=== PATIENT | male | born 1950 | race Hispanic/Latino ===

== ENCOUNTER → 2018-11-13 | Outpatient (CLI) | payer OTHER, MEDICARE ==
[~2018-11-13] VITALS: Ht 167.6 cm; Wt 80.7 kg
[~2018-11-13] MED LIST: REGADENOSON 0.4 MG/5 ML PF SYG IVP SCH
== END | disposition home or self-care (01) ==
LOC: SHCH 07:45
PROVIDERS: ATTEND Internal Medicine Cardiovascular Disease
DX: I25.119 Atherosclerotic heart disease of native coronary artery with unspecified angina pectoris (principal)
CPT/HCPCS: 78452; 93017; 96374; A9500 ×2; J2785

== ENCOUNTER → 2018-11-18 | Outpatient (CLI) | payer OTHER, MEDICARE | END | disposition home or self-care (01) | LOC: SHCH 07:34 → EDUNIT# 08:30 | PROVIDERS: ATTEND Internal Medicine Cardiovascular Disease | DX: I35.0 Nonrheumatic aortic (valve) stenosis (principal); I25.119 Atherosclerotic heart disease of native coronary artery with unspecified angina pectoris | CPT/HCPCS: 93306 ==

== ENCOUNTER → 2021-08-21 | Outpatient (CLI) | payer OTHER, MEDICARE | END | disposition home or self-care (01) | LOC: SHCH 10:43 | PROVIDERS: ATTEND Internal Medicine Cardiovascular Disease | DX: I70.293 Other atherosclerosis of native arteries of extremities, bilateral legs (principal) | CPT/HCPCS: 93925 ==

== ENCOUNTER → 2021-08-24 | Outpatient (CLI) | payer OTHER, MEDICARE ==
[~2021-08-24] VITALS: Ht 167.6 cm; Wt 76.7 kg
== END | disposition home or self-care (01) ==
LOC: SHCH 08:10
PROVIDERS: ATTEND Internal Medicine Cardiovascular Disease
DX: R07.9 Chest pain, unspecified (principal)
CPT/HCPCS: 78452; 93017; 96374; A9500 ×2; J2785

== ENCOUNTER 2023-10-20 14:31 | Emergency (ER) | payer MEDICARE, OTHER ==
[~2023-10-20] VITALS: Ht 167.6 cm; Wt 77.1 kg
[2023-10-20 14:38] VITALS: BP 173/76; PULSE 83; RESP 16
[2023-10-20] MEDS ORDERED: KETO10TA2 PO (16:20)
[2023-10-20] MEDS: KETOROLAC 10 MG TABLET PO STA (17:06)
== END 2023-10-20 17:17 | disposition home or self-care (01) ==
LOC: EDH 14:31
DX: M25.562 Pain in left knee (principal); I10 Essential (primary) hypertension; E78.00 Pure hypercholesterolemia, unspecified; Z90.49 Acquired absence of other specified parts of digestive tract
CPT/HCPCS: 73562